=== PATIENT | male | born 1960 | race Caucasian/White ===

== ENCOUNTER 2017-09-22 06:34 | Observation (INO) | payer OTHER ==
[2017-09-22] VITALS (8 sets, daily range): BP systolic 101–120; BP diastolic 39–87
[~2017-09-22] VITALS: Ht 172.7 cm; Wt 74.8 kg
--- NOTE | ~2017-09-22 | P ---
[facility] [place] [address] PROCEDURE REPORT Name: ANGELA PATTON Room #: 219-P [facility]..#: [id number] Admission: 09/22/17 Attend Phys: Clinton Moore MD Discharge: Date of : 60 Report #: [id number] THIS REPORT FOR: //name// CC: Jose Moore DATE OF SERVICE: 09/22/2017 PROCEDURE: Biventricular ICD implantation. PREOPERATIVE DIAGNOSES: 1. Nonischemic cardiomyopathy. 2. Left bundle-branch block. 3. [place] [employer] functional class 3. HISTORY: The patient is a 57-year-old with a history of nonischemic cardiomyopathy, EF of 20-25% with a left bundle-branch block, QRS duration 190 milliseconds and class 3 heart failure symptoms who is here for Bi-V ICD implantation. ANESTHESIA: The patient underwent MAC anesthesia. No anesthesia related complications. DESCRIPTION OF PROCEDURE: The patient underwent informed consent. We discussed the details of the procedure including the risks, which include but not limited to bleeding, infection, vascular damage, cardiac perforation, pneumothorax. He understood these risks and was willing to proceed. As such, he was brought to the EP laboratory in a fasting and nonsedated state and prepped and draped in a sterile fashion. The patient received IV antibiotics prior to the procedure and underwent a venogram showing patency of the left axillary vein. Next, I injected 20 mL of lidocaine below the level of the left clavicle. Incision was made. A pocket was created over the prepectoral fascia. Next, I attempted to obtain access to left axillary vein. I initially hit the axillary artery. I held pressure and I continued to try and enter the vessel. This was unsuccessful. I performed another venogram, which showed that the vein was now occluded with collaterals. I therefore spent 20-30 minutes attempting to access the vessel. Eventually using a subclavian technique, I was able to obtain access x 3 using the modified Seldinger technique, 3 sheaths were positioned. Next under fluoroscopy, I placed a lead into the right ventricular apex and a lead into the right atrial appendage. Of note, the right ventricle was very enlarged and placement of the atrial lead was also somewhat challenging due to the size. Both leads were successfully placed with adequate pacing and sensing thresholds and then the leads were sutured to the prepectoral fascia. Next, a 9-Kinyarwanda short sheath was placed in the subclavian vessel and a coronary guide sheath was placed into the right atrium. I was able to eventually obtain access to the coronary sinus using my standard sheath. I performed a venogram, which [address] [address] PROCEDURE REPORT Name: ANGELA PATTON Room #: 219-P [facility] Maikel MMikeRMike#: [id number] Admission: 09/22/17 Attend Phys: Clinton Moore MD Discharge: Date of : 60 Report #: [id number] showed that there was an anterolateral branch middle cardiac vein and there was a lateral branch coming off the proximal third of the coronary sinus. I initially attempted to place the lead into the anterolateral branch, but this was unsuccessful and I could only cannulate the AIV. Eventually, I decided to try and enter this more proximal branch. This had somewhat of a challenging takeoff, but eventually the lead was able to cannulate this with the wire and the lead was easily placed in this vessel. There was a good pacing and sensing thresholds and there was no diaphragmatic capture at this site. The sheath was split and the lead remained in stable position then was sutured to the prepectoral fascia. Next, the device was connected to leads, placed in the pocket and the pocket was irrigated with vancomycin and then the pocket was closed in 3 layers using 2-0 for the deep layer, 3-0 for the mid layer and 4-0 for the subcuticular layer. Surgical glue was placed at the outer skin layer. The patient awoke neurologically and hemodynamically intact with no complications and no significant bleeding. The implanted device was a [employer] model #[id number], serial #[id number]. The atrial lead was a [employer] model #2088TC, 52 cm, serial #[id number]. The RV lead was a [employer] model #7122Q, 65 cm, serial #[id number]. The LV lead was a [employer] model #1458Q, 86 cm, serial #[id number]. The atrial lead demonstrated a P-wave of 3.1 millivolts, pacing impedance of 530 ohms and a pacing threshold of 0.5 volts at 0.5 milliseconds. The RV lead demonstrated an R-wave of 11.7 millivolts, pacing impedance of 600 ohms and the pacing threshold of 0.5 volts at 0.5 milliseconds. The LV lead was demonstrated a pacing threshold of 0.75 volts at 0.5 milliseconds and a pacing impedance of 660 ohms. The device is programmed to the DDD 60-130 mode. The LV lead was programmed at the most basal bipolar pacing configuration with an LV to RV offset of 60 milliseconds. This resulted in narrowing of the QRS duration from 190 milliseconds down to 112 milliseconds. The VT zone was set at 180-220 beats per minute with ATP times with burst x 3, ramp x 3 followed by max output shocks. The VF zone was set at greater than 220 beats per minute with ATP while charging followed by max output shocks. CONCLUSIONS: 1. Successful Bi-V ICD implantation. 2. Satisfactory atrial, right ventricular, left ventricular pacing thresholds. 3. Lead placement using a subclavian approach. <ELECTRONICALLY SIGNED> By: Clinton Moore MD 09/23/17 1045 [id number] Clinton Moore MD /nt
--- NOTE | ~2017-09-22 | D ---
[facility] [place] [address] DISCHARGE SUMMARY Name: ANGELA PATTON Room #: 219-P [facility] MMikeMike#: [id number] Admission: 09/22/17 Attend Phys: Clinton Moore MD Discharge: Date of : 60 Report #: [id number] THIS REPORT FOR: //name// CC: Jose Moore DISCHARGE DIAGNOSES: 1. Nonischemic cardiomyopathy. 2. [place] [employer] functional class 3. 3. Left bundle-branch block. PROCEDURES PERFORMED: Bi-V ICD implantation. The patient is a patient with history of a nonischemic cardiomyopathy who is here for Bi-V ICD implantation. The patient underwent successful Bi-V ICD implantation. There were no complications, but did have difficulties getting axillary vein access and did have to perform a subclavian access. The device did result in significant narrowing of his QRS from around 190 milliseconds down to 112 milliseconds. HOSPITAL COURSE: The patient was monitored in the hospital overnight. He had a chest x-ray performed this morning, which showed stable lead position and no pneumothorax. He underwent device interrogation, which showed stable pacing and sensing thresholds and no arrhythmias. Telemetry showed no arrhythmias. On the day of discharge, the patient was doing well. He denied any chest pain. He reported his shortness of breath was mildly improved. He also had some improved appetite. He denied any fevers or chills. PHYSICAL EXAMINATION: HEART: Regular rate and rhythm. He had no JVD. LUNGS: Clear bilaterally. ABDOMEN: Soft, nontender. EXTREMITIES: There is no clubbing, cyanosis, or edema and his incision site was healing nicely with no hematoma and no bruising. As such, he was deemed stable for discharge home. He will be discharged on his same home medications. Discharge instructions were reviewed and he understands to follow up in 7-10 days for site check. <ELECTRONICALLY SIGNED> By: Clinton Moore MD 09/23/17 1206 [id number] Clinton Moore MD /nt
[2017-09-22] MEDS ORDERED: BUSPIRONE HCL10 MG PO (07:32)
[2017-09-22] MEDS ORDERED: CARVEDILOL3.125 MG PO (07:32)
[2017-09-22] MEDS ORDERED: ATIVAN1 MG PO (07:33)
[2017-09-22] MEDS ORDERED: NAMENDA 5 MG TAB5 M1 PO (07:33)
[2017-09-22] MEDS ORDERED: COZAAR 25 MG TA25 M1 PO (07:33)
[2017-09-22] MEDS ORDERED: MELATONIN5 M1 PO (07:33)
[2017-09-22] MEDS ORDERED: TRAZODONE 150150 M1 PO (07:34)
[2017-09-22] MEDS ORDERED: ALDACTONE50 MG PO (07:34)
[2017-09-22 07:41] LABS: ABSOLUTE NEUTROPHILS 4.3 thou/uL (1.4-8.2); EOSINOPHILS 1.9 % (0.0-3.0); HEMOGLOBIN 13.6 gm/dL (14.0-18.0); LYMPHOCYTES 18.7 % (24.0-44.0); MCH 28.8 pg (26.0-34.0); MCHC 33.1 g/dL (28.0-37.0); MCV 86.9 fL (80.0-100.0); MONOCYTES 9.3 % (1.0-8.0); PLATELET COUNT 232 thou/uL (150-400); POLYS 69.1 % (36.0-66.0); RBC 4.72 mil/uL (4.50-6.00); RDW 20.4 % (10.5-14.5); WBC 6.2 thou/uL (4.0-11.0)
[2017-09-22 07:44] LABS: MANUAL DIFF NO
[2017-09-22 07:46] LABS: CALCIUM 9.3 mg/dL (8.5-10.1); CREATININE 1.1 mg/dL (0.7-1.3); POTASSIUM 4.5 mmol/L (3.5-5.1)
[2017-09-22 07:52] LABS: ALBUMIN 3.5 g/dL (3.4-5.0); TOTAL BILIRUBIN 1.3 mg/dL (<0.1-1.0); TOTAL PROTEIN 7.8 g/dL (6.4-8.2)
[2017-09-22 07:53] LABS: APTT 27.3 Seconds (24.5-32.8); INR 1.1; PROTIME 11.5 Seconds (9.3-11.4)
[2017-09-23 03:06] VITALS: BP 114/86
[2017-09-23 08:50] VITALS: BP 111/82
[2017-09-23 10:33] VITALS: BP 111/82
[2017-09-23 11:58] VITALS: BP 111/82
== END 2017-09-23 12:00 | disposition home or self-care (01) ==
LOC: CATH 06:34 → 2N 12:49 → CATH 14:14 → ENTRNSPT 09-23 11:45 → EDTRNSPTSTS 09-23 11:50 → 2N 09-23 12:00
PROVIDERS: Internal Medicine Cardiovascular Disease
DX: I42.8 Other cardiomyopathies (principal); I10 Essential (primary) hypertension; I44.7 Left bundle-branch block, unspecified; F41.9 Anxiety disorder, unspecified

== ENCOUNTER → 2020-05-30 | Outpatient (CLI) | payer OTHER ==
[~2020-05-30] MED LIST: ALDACTONE50 MG PO; ATIVAN1 MG PO; BUSPIRONE HCL10 MG PO; CARVEDILOL3.125 MG PO; COZAAR 25 MG TA25 M1 PO; MELATONIN5 M1 PO; NAMENDA 5 MG TAB5 M1 PO; TRAZODONE 150150 M1 PO
== END ==
LOC: SJCVCIMAG 09:34
PROVIDERS: ATTEND Internal Medicine
DX: I08.3 Combined rheumatic disorders of mitral, aortic and tricuspid valves (principal); R94.31 Abnormal electrocardiogram [ECG] [EKG]; I11.0 Hypertensive heart disease with heart failure; I50.22 Chronic systolic (congestive) heart failure; I42.6 Alcoholic cardiomyopathy; E78.5 Hyperlipidemia, unspecified; Z95.0 Presence of cardiac pacemaker; Z79.899 Other long term (current) drug therapy

== ENCOUNTER → 2021-06-19 | Outpatient (CLI) | payer OTHER | LOC: SJCVCIMAG 06-03 09:35 | PROVIDERS: ATTEND Internal Medicine | DX: R94.31 Abnormal electrocardiogram [ECG] [EKG] (principal); I42.6 Alcoholic cardiomyopathy; I11.0 Hypertensive heart disease with heart failure; I50.32 Chronic diastolic (congestive) heart failure; M19.90 Unspecified osteoarthritis, unspecified site; E78.5 Hyperlipidemia, unspecified; F41.9 Anxiety disorder, unspecified; Z95.810 Presence of automatic (implantable) cardiac defibrillator; Z79.82 Long term (current) use of aspirin; Z79.899 Other long term (current) drug therapy; Z90.49 Acquired absence of other specified parts of digestive tract ==